=== PATIENT | male | born 1970 | race Caucasian/White ===

== ENCOUNTER 2019-07-09 04:23 | Emergency (ER) | payer OTHER ==
[2019-07-09 04:40] VITALS: BP 152/94
[2019-07-09] MEDS ORDERED: methylPREDNISolone SOD SUCC PF 125 MG/2 ML VIAL. IM ONE (04:45)
[2019-07-09] MEDS ORDERED: diphenhydrAMINE 50 MG/ML VIAL IM ONE (04:45)
--- NOTE | 2019-07-09 04:52 | PHYS DOC ---
Past History Past Medical History: Hypertension, Other Additional Past Medical Histor: Sleep apnea, Past Surgical History: No Surgical History Alcohol Use: Occasionally Drug Use: None Adult General Chief Complaint Chief Complaint: ALLERGIC REACTION HPI HPI Patient is a 48-year-old male who presents with report of rash and itching in numerous areas on his body as well as swelling to the lower lip. Patient is not sure if he might have been bitten by some insects as he is not sure as to the cause of the skin lesions with itching. 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 He states that he was also attempting to sleep outside but was unable to sleep due to the itching. Patient does indicate that he is on lisinopril but has never had an allergic reaction to the lisinopril in the past. He denies any difficulty swallowing, itching throat or shortness of breath. He also denies any cough.[] Review of Systems Review of Systems Constitutional: Denies fever or chills [] Respiratory: Denies cough or shortness of breath [] Cardiovascular: No additional information not addressed in HPI [] Integument: Positive rash/skin lesions [] Neurologic: Denies headache, focal weakness or sensory changes [] All other systems were reviewed and found to be within normal limits, except as documented in this note. Current Medications Current Medications Current Medications Medications (Trade) Dose Ordered Sig/Leoncio Start Time Stop Time Status Last Admin Dose Admin Diphenhydramine HCl (Benadryl) 50 mg 1X ONCE 07/09/19 04:45 07/09/19 04:46 UNV Methylprednisolone Sodium Succinate (SOLU-Medrol 125MG VIAL) 125 mg 1X ONCE 07/09/19 04:45 07/09/19 04:46 UNV Allergies Allergies Allergies Coded Allergies Type Severity Reaction Last Updated Verified lisinopril Allergy Unknown 07/09/19 Yes Physical Exam Physical Exam Constitutional: Well developed, well nourished, no acute distress, non-toxic appearance. [] HENT: Normocephalic, atraumatic, bilateral external ears normal, oropharynx moist, there is moderate swelling to the lower lip, primarily on the left. [] Eyes: PERRLA, EOMI, conjunctiva normal, no discharge. [] Neck: Normal range of motion, no tenderness, supple, no stridor. [] Cardiovascular:Heart rate regular rhythm, no murmur [] Lungs & Thorax: Bilateral breath sounds clear to auscultation [] Abdomen: Bowel sounds normal, soft. [] Skin: Warm, dry, numerous raised skin lesions are noted many of which are ur ticarial in appearance. [] Extremities: No tenderness, no cyanosis, no clubbing, ROM intact. [] Neurologic: Alert and oriented X 3, no focal deficits noted. [] EKG EKG [] Radiology/Procedures Radiology/Procedures [] Course & Med Decision Making Course & Med Decision Making Pertinent Labs and Imaging studies reviewed. (See chart for details) [] Dragon Disclaimer Dragon Disclaimer This electronic medical record was generated, in whole or in part, using a voice recognition dictation system. Departure Departure: Impression: Primary Impression: [id number] Disposition: HOME, SELF-CARE Condition: STABLE Referrals: PCP,UNKNOWN (PCP) Patient Instructions: Angioedema Additional Instructions: Discontinue use of your lisinopril. Follow-up with your primary care provider in the 1-2 days to discuss alternative medication. Problem Qualifiers Primary Impression: [id number] Encounter type: initial encounter Qualified Codes: T78.3XXA - Angioneurotic edema, initial encounter HALIMA COTE Jr. DO Jul 09, 2019 04:52
== END 2019-07-09 06:28 | disposition home or self-care (01) ==
LOC: ER 04:23
DX: T78.3XXA Angioneurotic edema, initial encounter (principal); I10 Essential (primary) hypertension; Z88.8 Allergy status to other drugs, medicaments and biological substances
CPT/HCPCS: 96372; 99284; J1200; J2930